=== PATIENT | male | born 1995 | race Caucasian/White ===

== ENCOUNTER 2019-11-26 23:54 | Inpatient (IN) ==
--- NOTE | 2019-11-27 00:50 | Emergency Department Note ---
History of Present Illness General Chief complaint: Mental Health Evaluation Stated complaint: SUICIDAL Time Seen by Provider: 11/27/19 00:08 Source: patient Mode of arrival: other (police) Limitations: no limitations History of Present Illness Provider complaint: hallucinations and Si Onset (ago): year(s) Current Pain Intensity: 0 Exacerbated By: + none Associated symptoms: + denies other symptoms Treatments prior to arrival: none This is a 24-year-old male who presents due to concern for suicidal ideation with law enforcement. Patient states he called police himself due to his concern for worsening SI. Patient does admit to a prior suicide attempt via hanging. Patient states he has a long history of hallucinations. He states these are typically auditory and that the voices tell him to hurt himself as well as other people. Patient states he does regularly use marijuana although denies any other recreational drugs. Patient states several years ago he used to use IV heroin. He states this is also how he acquired hepatitis C from sharing needles. Patient states he did consume some alcohol earlier tonight. Patient denies any other recent illness or injury. Patient states he was previously started on Haldol and Celexa to help with his symptoms, however he stopped taking these several weeks ago because he did not think he needed them. He admits that in the interim the voices he is hearing have gotten worse. Home Medications Home Medications Medication Instructions Recorded Confirmed Type citalopram [Celexa] mg PO DAILY 11/27/19 History haloperidol mg PO DAILY 11/27/19 History Allergies Allergy/AdvReac Type Severity Reaction Status Date / Time lorazepam [From Ativan] Allergy Difficulty Verified 11/27/19 00:22 Breathing Past Med/Surg History Medical History (Updated 11/27/19 @ 02:59 by Kellie Braun DO) Hallucinations (Acute) Hepatitis C Marijuana use (Acute) Suicidal ideation (Acute) Social History (Updated 11/27/19 @ 00:49 by Kellie Braun DO) Current Living Situation: Family current occupational status: employed Feels Safe at Home: Yes Smoking Status: Current every day smoker Tobacco Type: cigarettes ; Hx Alcohol Use: Yes Hx Substance Use: Yes Review of Systems See HPI for pertinent positives & negatives. and A total of 10 systems reviewed and were otherwise negative Physical Exam Vital Signs Vital Signs - 24 hr 11/27/19 00:02 11/27/19 01:43 Temperature 36.6 C Temperature Source Oral Pulse Rate 113 H Pulse Rate [Finger] 89 Respiratory Rate 24 20 Respiratory Effort / Characteristics Non-Labored Spontaneous Respiratory Depth Normal Blood Pressure 147/89 H Blood Pressure [Right Arm] 151/84 H Blood Pressure Mean 108 Blood Pressure Mean [Right Arm] 106 Pulse Oximetry 98 95 Oxygen Delivery Method Room Air Room Air Sepsis Recent Fever Within 48 Hours No Sepsis New/Unexplained Change in Mental Status No Sepsis Action Taken by Nursing No Action Required GENERAL: alert, well appearing, well nourished, no distress, non-toxic EYE EXAM: normal conjunctiva, PERRL and EOM's grossly intact OROPHARYNX: no exudate, no erythema, lips, buccal mucosa, and tongue normal and mucous membranes are moist NECK: supple, no nuchal rigidity, no adenopathy, non-tender LUNGS: Clear to auscultation. Normal chest wall mechanics, no w/r/r HEART: no murmurs, S1 normal and S2 normal ABDOMEN: abdomen soft, non-tender, normo-active bowel sounds, no masses, no rebound or guarding. BACK: Back is symmetrical on inspection and there is no deformity, no midline tenderness, no CVA tenderness. SKIN: no rashes and no bruising UPPER EXTREMITIES: upper extremities are grossly normal. FROM, nml pulses b/l. LOWER EXTREMITIES: No pitting edema. FROM, nml pulses b/l. NEURO EXAM: Normal sensorium, cranial nerves II-XII grossly intact, normal speech, no gross weakness of arms, no gross weakness of legs.Gross sensation intact. Course Course 0255: Patient has been seen and evaluated by Gucci, psychiatric nurse case manager. He will refer upstairs to 3 S. 0400: 201 signed. Medical Decision Making Differential Diagnosis Differential diagnoses considered include mood disorder, infection, hypoglycemia, electrolyte abnormalities, cardiac sources, intracerebral event, toxicologic, neurologic, as well as others. Medical Records Attestation: I reviewed the patient's medical records. Home Medications Current Medication List: was personally reviewed by me Laboratory Data Attestation: I reviewed the patient's lab results. Result diagrams: 11/27/19 01:10 11/27/19 01:10 Lab Results 11/27/19 11/27/19 11/27/19 Range/Units 00:12 00:12 01:10 WBC 9.39 (4.8-10.8) K/uL RBC 5.31 (4.7-6.1) M/uL Hgb 17.1 (14.0-18.0) g/dL Hct 48.7 (42-52) % MCV 91.7 (80-100) fL MCH 32.2 (25-34) pg MCHC 35.1 (32-36) g/dL RDW Std Deviation 41.7 (36.4-46.3) fL RDW Coeff of Kyra 12.5 (11.5-14.5) % Plt Count 204 (130-400) K/uL MPV 10.5 H (7.4-10.4) fL Immature Gran % (Auto) 1.9 % Neut % (Auto) 44.4 % Lymph % (Auto) 39.6 % [place] % (Auto) 10.5 % Eos % (Auto) 2.7 % Baso % (Auto) 0.9 % Immature Gran # (Auto) 0.18 H (0.00-0.02) K/uL Neut # (Auto) 4.17 (1.4-6.5) K/uL Lymph # (Auto) 3.72 H (1.2-3.4) K/uL [place] # (Auto) 0.99 H (0.11-0.59) K/uL Eos # (Auto) 0.25 (0-0.5) K/uL Baso # (Auto) 0.08 (0-0.2) K/uL Sodium (136-145) mmol/L Potassium (3.5-5.1) mmol/L Chloride (98-107) mmol/L Carbon Dioxide (21-32) mmol/L Anion Gap (3-11) BUN (7-18) mg/dl Creatinine (0.6-1.4) mg/dl Est Cr Clr Drug Dosing ml/min Est GFR ( Amer) Est GFR (Non-Af Amer) BUN/Creatinine Ratio (10-20) Glucose (70-99) mg/dl Calcium (8.5-10.1) mg/dl Total Bilirubin (0.2-1) mg/dl AST (15-37) U/L ALT (12-78) U/L Alkaline Phosphatase (45-117) U/L Total Protein (6.4-8.2) gm/dl Albumin (3.4-5.0) gm/dl Globulin (2.5-4.0) gm/dl Albumin/Globulin Ratio (0.9-2) TSH (0.300-4.500) uIu/ml Specimen Hemolysis Urine Color Yellow Urine Appearance Clear (Clear) Urine pH 5.0 (4.5-7.5) Ur Specific [place] 1.033 H (1.000-1.030) Urine Protein Negative (Negative) Urine Glucose (UA) Negative (Negative) Urine Ketones Trace H (Negative) Urine Blood Negative (Negative) Urine Nitrite Negative (Negative) Urine Bilirubin Negative (Negative) Urine Urobilinogen Negative (Negative) Ur Leukocyte Esterase Negative (Negative) Salicylates (2.8-20) mg/dl Urine Opiates Screen Neg (Neg) Ur Methadone, Qual Neg (Neg) Acetaminophen (10-30) ug/ml Urine Barbiturates Neg (Neg) Ur Phencyclidine (PCP) Neg (Neg) U Amphetamin/Meth Scrn Neg (Neg) MDMA (Ecstasy) Screen Neg (Neg) U Benzodiazepines Scrn Neg (Neg) Ur Cocaine Metabolite Neg (Neg) U Marijuana (THC) Screen Pos H (Neg) Ethyl Alcohol mg/dL (0-3) mg/dl 11/27/19 11/27/19 11/27/19 Range/Units 01:10 01:10 01:10 WBC (4.8-10.8) K/uL RBC (4.7-6.1) M/uL Hgb (14.0-18.0) g/dL Hct (42-52) % MCV (80-100) fL MCH (25-34) pg MCHC (32-36) g/dL RDW Std Deviation (36.4-46.3) fL RDW Coeff of Kyra (11.5-14.5) % Plt Count (130-400) K/uL MPV (7.4-10.4) fL Immature Gran % (Auto) % Neut % (Auto) % Lymph % (Auto) % [place] % (Auto) % Eos % (Auto) % Baso % (Auto) % Immature Gran # (Auto) (0.00-0.02) K/uL Neut # (Auto) (1.4-6.5) K/uL Lymph # (Auto) (1.2-3.4) K/uL [place] # (Auto) (0.11-0.59) K/uL Eos # (Auto) (0-0.5) K/uL Baso # (Auto) (0-0.2) K/uL Sodium 141 (136-145) mmol/L Potassium 3.9 (3.5-5.1) mmol/L Chloride 111 H (98-107) mmol/L Carbon Dioxide 22 (21-32) mmol/L Anion Gap 8.0 (3-11) BUN 18 (7-18) mg/dl Creatinine 0.95 (0.6-1.4) mg/dl Est Cr Clr Drug Dosing 162.4 ml/min Est GFR ( Amer) 130.2 Est GFR (Non-Af Amer) 112.4 BUN/Creatinine Ratio 19.0 (10-20) Glucose 97 (70-99) mg/dl Calcium 8.9 (8.5-10.1) mg/dl Total Bilirubin 0.3 (0.2-1) mg/dl AST 86 H (15-37) U/L ALT 164 H (12-78) U/L Alkaline Phosphatase 111 (45-117) U/L Total Protein 7.5 (6.4-8.2) gm/dl Albumin 3.9 (3.4-5.0) gm/dl Globulin 3.6 (2.5-4.0) gm/dl Albumin/Globulin Ratio 1.1 (0.9-2) TSH 2.260 (0.300-4.500) uIu/ml Specimen Hemolysis Urine Color Urine Appearance (Clear) Urine pH (4.5-7.5) Ur Specific [place] (1.000-1.030) Urine Protein (Negative) Urine Glucose (UA) (Negative) Urine Ketones (Negative) Urine Blood (Negative) Urine Nitrite (Negative) Urine Bilirubin (Negative) Urine Urobilinogen (Negative) Ur Leukocyte Esterase (Negative) Salicylates 1.8 L (2.8-20) mg/dl Urine Opiates Screen (Neg) Ur Methadone, Qual (Neg) Acetaminophen < 2 L (10-30) ug/ml Urine Barbiturates (Neg) Ur Phencyclidine (PCP) (Neg) U Amphetamin/Meth Scrn (Neg) MDMA (Ecstasy) Screen (Neg) U Benzodiazepines Scrn (Neg) Ur Cocaine Metabolite (Neg) U Marijuana (THC) Screen (Neg) Ethyl Alcohol mg/dL 36.0 H (0-3) mg/dl Blood Pressure Blood Pressure Findings: Elevated blood pressure Blood Pressure Disposition: Referred to patients primary care provider MIRIAM Narrative Patient here, cooperative throughout. Due to concern for hallucinations and thoughts of wanting to hurt himself, patient seen and evaluated by psychiatric nurse case manager and was referred to [address]. Patient signed voluntary admission form and will be moved upstairs. Patient's other labs here are reassuring. He had no other concerns or other injury or illness. I do not suspect other toxicologic etiology or occult overdose. Impression & Plan Hallucinations, Marijuana use, Suicidal ideation Discharge Plan Visit Data Chief Complaint: Mental Health Evaluation Stated Complaint: SUICIDAL ED Provider: Kellie Braun Discharge Problem: Hallucinations, Marijuana use, Suicidal ideation Patient Disposition: Admitted As Inpatient Discharge Instructions Interventions: ED Discharge Assessment Last Done: 11/27/19 04:21
[2019-11-27 01:15] LABS: Appearance Urine Clear (Clear); Bilirubin Urine Negative (Negative); Blood Urine Negative (Negative); Color Urine Yellow; Glucose Urine UA Negative (Negative); Ketones Urine Trace (Negative); Leukocyte Esterase Urine Negative (Negative); Nitrite Urine Negative (Negative); Protein Urine Negative (Negative); Specific Gravity Urine 1.033 (1.000-1.030); Urobilinogen Urine Negative (Negative)
[2019-11-27 01:26] LABS: Basophils # (auto) 0.08 K/uL (0-0.2); Basophils % (auto) 0.9 %; Eosinophils # (auto) 0.25 K/uL (0-0.5); Eosinophils % (auto) 2.7 %; Hematocrit (blood only) 48.7 % (42-52); Hemoglobin 17.1 g/dL (14.0-18.0); Immature Granulocytes # (auto) 0.18 K/uL (0.00-0.02); Immature Granulocytes % (auto) 1.9 %; Lymphocytes # (auto) 3.72 K/uL (1.2-3.4); Lymphocytes % (auto) 39.6 %; Mean Corpuscular Hemoglobin 32.2 pg (25-34); Mean Corpuscular Hgb Conc 35.1 g/dL (32-36); Mean Corpuscular Volume 91.7 fL (80-100); Mean Platelet Volume 10.5 fL (7.4-10.4); Monocytes # (auto) 0.99 K/uL (0.11-0.59); Monocytes % (auto) 10.5 %; Neutrophils # (auto) 4.17 K/uL (1.4-6.5); Neutrophils % (auto) 44.4 %; Platelet Count 204 K/uL (130-400); RDW Coefficient of Variation 12.5 % (11.5-14.5); RDW Standard Deviation 41.7 fL (36.4-46.3); Red Blood Count 5.31 M/uL (4.7-6.1); White Blood Count 9.39 K/uL (4.8-10.8)
[2019-11-27 01:32] LABS: Amphetamines+Metham, Urine Neg (Neg); Barbiturates, Urine Neg (Neg); Benzodiazepine, Urine Neg (Neg); Cocaine, Urine Neg (Neg); MDMA (Ecstacy), Urine Neg (Neg); Methadone, Urine Neg (Neg); Opiate, Urine Neg (Neg); Phencyclidine, Urine Neg (Neg)
[2019-11-27 02:23] LABS: Acetaminophen < 2 ug/ml (10-30); Albumin Globulin Ratio 1.1 (0.9-2); Albumin Level 3.9 gm/dl (3.4-5.0); Bilirubin,Total 0.3 mg/dl (0.2-1); Calcium 8.9 mg/dl (8.5-10.1); Creatinine Clr Calc Pharmacy 162.4 ml/min; Est GFR (African American) 130.2; Est GFR (Non-African American) 112.4; Globulin 3.6 gm/dl (2.5-4.0); Potassium 3.9 mmol/L (3.5-5.1); Salicylate 1.8 mg/dl (2.8-20); Thyroid Stimulating Hormone 2.26 uIu/ml (0.300-4.500); Total Protein 7.5 gm/dl (6.4-8.2)
[2019-11-27] MEDS ORDERED: BISMUTH SUBSALICYLATE PER ML OMNICELL CHARGE PO PRN (04:37)
[2019-11-27] MEDS ORDERED: ALUMINUM/MAGNESIUM SUSP 30 ML UDC PO PRN (04:37)
[2019-11-27] MEDS ORDERED: SODIUM CHLORIDE 0.65% NA SOLN 45 ML (OCEAN) PRN (04:37)
[2019-11-27] MEDS ORDERED: MAGNESIUM HYDROXIDE SUSP 30 ML UDC PO PRN (04:37)
[2019-11-27] MEDS ORDERED: haloperidoL 5 MG TAB PO PRN (05:08)
--- NOTE | 2019-11-27 08:34 | History & Physical ---
Date of Service November 27, 2019 Impression / Recommendations Impression 24-year-old single male with an unclear past psychiatric history, significant substance abuse history, multiple previous inpatient hospitalizations per his report but no outpatient follow-up and chronic poor adherence to treatment, who presented to the ER after he called police reporting suicidality. Although he signed in voluntarily, he has been completely uncooperative with treatment since arrival, refusing to complete admission assessments, sign requested releases, participate in groups or therapy, resume medications, or accept referrals for outpatient treatment. He reports a history of alcohol withdrawal, and is tachycardic and hypertensive, so we will monitor via AWSS. Although he is refusing to participate in treatment he continues to report suicidality and is unwilling to participate in developing a safe discharge plan, and he is unlikely to benefit from treatment given his current behavior. I suspect antisocial PD and substance abuse are primary diagnoses, and that there is a precipitating stressor that he is not disclosing. He has not been forthcoming with information and has given conflicting reports, and will not allow us to speak with anyone for collateral information. (1) Mood disorder: 11/26 -differential includes depression, bipolar disorder, substance- induced mood disorder, personality disorder, and malingering. -Although patient indicates he was doing well on haloperidol and citalopram, he is refusing to resume these medications. -Request release for most recent episode of treatment (being him to the hospital couple of months ago), which he is refusing to sign. -Reviewed recommendations for collateral information from his brother (or any other support he can identify), but participation in discharge planning, which he is also refusing. -We will continue to encourage patient to come out of his room, attend groups and therapy, and participate in treatment, but if he refuses, we will need to consider administrative discharge. (2) Hallucinations: 11/26 -unclear if true hallucinations, substance-induced, or malingering. -Patient refusing scheduled medication, but have ordered haloperidol 5 mg every 4 hours PRN psychosis. -Encourage patient to be actively participating in treatment and engaging in reality testing and healthy coping skills. (3) Cannabis abuse: 11/26 -hallucinogen use likely contributing to presenting symptoms. Patient unwilling to discuss substance abuse treatment recommendations. (4) Alcohol abuse: 11/26 -patient reports drinking alcohol most days, large amounts, refuses to quantify further. Reports history of alcohol withdrawal and rehab for alcoholism. Start AWSS protocol, will utilize chlordiazepoxide if needed for symptoms, and will avoid lorazepam as he has not listed as an allergy with "difficulty breathing." However would also like to limit hepatically metabolized medications given his hepatitis C and elevated LFTs, but will need to balance the need to treat alcohol withdrawal with attempts to minimize the impact to his other health conditions. Could also consider clonidine for blood pressure control. Patient is refusing substance abuse treatment, but will initiate recovery protocol. Return to rehab or IOP is warranted, but patient unwilling to discuss. (5) Heroin abuse: 11/26 -patient reports being clean for 3 years from heroin. Treatment recommendations as above. (6) IVDU (intravenous drug user): (7) Hepatitis C: Patient denies having a PCP. Recommend referral for initiation of outpatient care, which he is refusing. (8) Antisocial behavior: Demonstrates antisocial personality traits including repeatedly performing acts that are grounds for arrest, deceitfulness, impulsivity, and irritability. Risk Factors Assessment Male: Yes : Yes Do You Have Access To A Gun?: No Health Problems: Yes Mental Health Diagnoses: Yes Substance Use Disorders: Yes Previous Attempt: Yes Family History of Suicide: No Previous Psychiatric Hospitalization: Yes Hopelessness: Yes Smoker: Yes Protective Factors Assessment : No Responsible for Young Children: No Employed: Yes ([employer]) Stable Relationships: No Supportive Family: No Good Rapport with Provider: No Psychiatric History Identifying Data TIMMY THOMASON is a 24-year-old M who currently lives in [place] (either alone or with brother, discrepant reports), and was admitted on 11/27/19 04:15 on a 201 voluntary commitment for suicidality. Chief Complaint "I hate life". History of Present Illness Patient presented to the ER via police reporting suicidal ideation. He stated that he called the police himself, was experiencing auditory hallucinations telling him to hurt himself and other people, and reported a suicide attempt by hanging about a month ago. He reported being hospitalized at many different psychiatric facilities across the [facility], most recently in [facility] a couple of months ago, at which time he was discharged on haloperidol and citalopram, but stopped taking them several weeks ago because he did not think he needed them. The auditory hallucinations then got worse, and he did not feel safe outside of the hospital. He reported regular marijuana and occasional alcohol use, and UDS was positive for THC. LFTs were elevated and he reported a history of hepatitis C from IV drug use, but stated he had not used heroin in several years. Admission labs were also notable for UA with trace ketones and elevated specific gravity, AST 86 and ALT 164, normal TSH, and alcohol level of 36. He initially reported that he was in [place] visiting his brother, then stated that he lived here and had recently started a job at [employer]. He said he was from [place], but his insurance company stated his home address was listed as [place]. His insurance company also indicated that he was at rehab at [facility] in [place] in 06/2019. He refused to sign a release for his brother or any other friends or family for collateral information. He signed in voluntarily for treatment, but after arriving on the unit, was poorly cooperative with all admission assessments. On my assessment today, he was seen in his room, where he is lying in bed with his pillow and blankets piled on top of his head, and was resistant to engaging in the interview. He states he does not like it here because "everyone's too happy," and regrets coming to the hospital. He often answers "I don't know," or mumbles incoherently in response to questions. He refused to complete the social work assessment, and is refusing all groups. He states that mood is been worsening for "a couple of weeks," and when asked if he would like to return to the medications he was on prior as it sounds as if they were helping, he refuses. He says he was started on citalopram and haloperidol when hospitalized in [place] a few months ago, but had no outpatient follow-up after discharge. He reports being hospitalized about 20 times, but never following up as an outpatient, and cannot explain why. He denies ever having an extended period of medication compliance. He says he moved to [place] area a couple of weeks ago because his older brother lives here, but says he is living alone and his brother is not supportive. He says he has no contact with any of his other family members because "they pissed me off, which they all ." He denies thoughts to harm any one specific person, but reports ongoing suicidal thoughts. He reports drinking "a lot," most days of the week, and reports a history of alcohol withdrawal and inpatient rehab in the past, but will not give further details. When advised that we would need to start an alcohol withdrawal protocol, he states "I don't want it." Reviewed the treatment offered here, including the option of medications, referring him for outpatient treatment, groups and therapy, and a family meeting; he says he does not want any of these things. When asked if he would like to leave, he says yes. Explained process for submitting a 72-hour notice. Inquired as to his plan when he leaves, and he stated "no idea." Advised that we cannot discharge him until he can work with us for a safe discharge plan. Social work then attempted to meet with him, and he refused to answer questions or complete the social work assessment. Past Psychiatric History Previous Psych History: Patient states he does not know what he was diagnosed within the past, but has had many hospitalizations. He denies ever following up with outpatient treatment. Current Psychiatric Diagnosis: Unknown Outpatient Services: None currently Previous Psych Admissions: Patient reports many hospitalizations, approximately 20, [place]," most recent hospitalization in [place], [place]. Do You Have Access To A Gun?: No History of Previous Suicide Attempt: Yes Describe Attempts in the Past: Attempted hanging approximately 1 month ago per his report Past Medication Trials: Information limited due to patient's poor cooperation with assessment; reports most recently being on Haloperidol citalopram Allergies Allergy/AdvReac Type Severity Reaction Status Date / Time lorazepam [From Ativan] Allergy Difficulty Verified 11/27/19 00:22 Breathing Family History Family History of: Other Mood Disorders Family Mental Health History Comment: "All the family are schizophrenia" Alcohol History Hx of Alcohol Use Over the Past 12 Months: Yes In the ER patient reported drinking "occasionally," but now states he drinks most days, "a lot," refuses to quantify amount. Reports history of alcohol withdrawal and inpatient rehab for alcoholism. Smoking Use Have You Smoked or Used Tobacco Products in the Last 30 Days: Yes tobacco type: cigarettes Smoking Status: Current every day smoker Smoking packs per day: 1 Substance History Hx of Prescription Med Misuse Over the Past 12 Months: No Hx of Over the Counter Med Misuse Over the Past 12 Months: No Hx of Inhalent Misuse Over the Past 12 Months: No Hx of Organic Substance Use Over the Past 12 Months: Yes ("Daily marijuana") Hx of Illegal Substances/Street Drug Use Over Past 12 Months: No Problems as a Result of Past Substance Use: Arrested and Sustained Bodily Harm (hepatitis C from IVDU) History of IV drug use, contracted hepatitis C. [facility] last use of heroin was approximately 3 years ago, but insurance indicates he was in rehab 5 months ago. Arrested for drug paraphernalia and controlled substance possession. History of alcohol withdrawal and inpatient rehab. Personal History Living Arrangements: Home Living Arrangements Comments: in [place] - gave discrepant reports, stating he was staying with brother, then saying he lived alone. Address is a PO box. Also reported living in [facility] Highest Grade Completed Comment: Unknown as patient refuses to answer. Employment Status: Strip [employer] Employed (states he just started a job at [employer] ) Marital Status: Single Number Of Children: Unknown as patient refuses to answer. Beliefs That Will Affect Care: None Legal Problems Comment: Patient denied in the ER, but per public record multiple arrests in [facility]: 2018 terroristic threats, 2015 receiving stolen property, disorderly conduct, fighting, criminal mischief, harassment, posses bernardino of controlled substances, and drug paraphernalia Hx Legal Problems: Yes Psychological Trauma History Comment: Unknown as patient refuses to answer. Patient History Medical History (Updated 11/27/19 @ 11:10 by Radha Chaney MD) Alcohol abuse Antisocial behavior Cannabis abuse Hallucinations (Acute) Hepatitis C Heroin abuse IVDU (intravenous drug user) Mood disorder Social History (Updated 11/27/19 @ 00:49 by Kellie Braun DO) Preferred Language: Belizean Communication Ability: Effective Salesperson Women'S Dresses Required: No Beliefs That Will Affect Care: None Current Living Situation: Family current occupational status: employed Feels Safe at Home: Yes Smoking Status: Current every day smoker Tobacco Type: cigarettes ; Hx Alcohol Use: Yes Hx Substance Use: Yes Review of Systems Review of Systems: Other (Patient refuses to answer.) Physical Exam Psychiatric: Orientation: alert; + uncooperative Overweight white male lying in bed, shirtless, with pillows and blankets piled on top of his head. Poorly cooperative, limited participation in assessment. Malodorous. Eye Contact: + poor eye contact Patient does not make any eye contact. Motor Behavior: no abnormal motor movements Minimal, mumbles at times. Affect: + depressed affect, + irritable affect and + constricted affect "I hate life." Thought Process: goal directed thought process Often answers "I don't know," positive thought content Suicidal Thoughts: + reports suicidal thoughts Homicidal Thoughts: denies homicidal thoughts Reports nonspecific thoughts to harm others, denies specific person he wants to harm her plan/intent Hallucinations: + auditory hallucinations Refuses to discuss or provide further information Cognition: attention grossly intact and language grossly intact Insight: + poor insight Judgement: + poor judgement Vital Signs (Past 24 Hours): Last Vital Signs Temp 36.6 C 11/27/19 06:49 Pulse 98 H 11/27/19 06:51 Resp 18 11/27/19 06:49 BP 147/84 H 11/27/19 06:51 Pulse Ox 99 11/27/19 04:21 Exam Statement: A physical exam was performed in the ER prior to admission to the unit by Dr. Kellie Braun. I accept that physical as correct/medical clearance for the inpatient physical exam. Results & Data ([facility]) Laboratory Results Laboratory Results - last 24 hr 11/27/19 11/27/19 11/27/19 00:12 00:12 00:12 WBC RBC Hgb Hct MCV MCH MCHC RDW Std Deviation RDW Coeff of Kyra Plt Count MPV Immature Gran % (Auto) Neut % (Auto) Lymph % (Auto) [place] % (Auto) Eos % (Auto) Baso % (Auto) Immature Gran # (Auto) Neut # (Auto) Lymph # (Auto) [place] # (Auto) Eos # (Auto) Baso # (Auto) Sodium Potassium Chloride Carbon Dioxide Anion Gap BUN Creatinine Est Cr Clr Drug Dosing Est GFR ( Amer) Est GFR (Non-Af Amer) BUN/Creatinine Ratio Glucose Calcium Total Bilirubin AST ALT Alkaline Phosphatase Total Protein Albumin Globulin Albumin/Globulin Ratio TSH Specimen Hemolysis Urine Color Yellow Urine Appearance Clear Urine pH 5.0 Ur Specific [place] 1.033 H Urine Protein Negative Urine Glucose (UA) Negative Urine Ketones Trace H Urine Blood Negative Urine Nitrite Negative Urine Bilirubin Negative Urine Urobilinogen Negative Ur Leukocyte Esterase Negative Salicylates Urine Opiates Screen Neg Ur Methadone, Qual Neg Acetaminophen Urine Barbiturates Neg Ur Phencyclidine (PCP) Neg U Amphetamin/Meth Scrn Neg MDMA (Ecstasy) Screen Neg U Benzodiazepines Scrn Neg Ur Cocaine Metabolite Neg U Marijuana (THC) Screen Pos H U Marijuana THC Carboxy Pending Drug Screen Comment Pending Ethyl Alcohol mg/dL 11/27/19 11/27/19 11/27/19 01:10 01:10 01:10 WBC 9.39 RBC 5.31 Hgb 17.1 Hct 48.7 MCV 91.7 MCH 32.2 MCHC 35.1 RDW Std Deviation 41.7 RDW Coeff of Kyra 12.5 Plt Count 204 MPV 10.5 H Immature Gran % (Auto) 1.9 Neut % (Auto) 44.4 Lymph % (Auto) 39.6 [place] % (Auto) 10.5 Eos % (Auto) 2.7 Baso % (Auto) 0.9 Immature Gran # (Auto) 0.18 H Neut # (Auto) 4.17 Lymph # (Auto) 3.72 H [place] # (Auto) 0.99 H Eos # (Auto) 0.25 Baso # (Auto) 0.08 Sodium 141 Potassium 3.9 Chloride 111 H Carbon Dioxide 22 Anion Gap 8.0 BUN 18 Creatinine 0.95 Est Cr Clr Drug Dosing 162.4 Est GFR ( Amer) 130.2 Est GFR (Non-Af Amer) 112.4 BUN/Creatinine Ratio 19.0 Glucose 97 Calcium 8.9 Total Bilirubin 0.3 AST 86 H ALT 164 H Alkaline Phosphatase 111 Total Protein 7.5 Albumin 3.9 Globulin 3.6 Albumin/Globulin Ratio 1.1 TSH 2.260 Specimen Hemolysis Urine Color Urine Appearance Urine pH Ur Specific [place] Urine Protein Urine Glucose (UA) Urine Ketones Urine Blood Urine Nitrite Urine Bilirubin Urine Urobilinogen Ur Leukocyte Esterase Salicylates 1.8 L Urine Opiates Screen Ur Methadone, Qual Acetaminophen < 2 L Urine Barbiturates Ur Phencyclidine (PCP) U Amphetamin/Meth Scrn MDMA (Ecstasy) Screen U Benzodiazepines Scrn Ur Cocaine Metabolite U Marijuana (THC) Screen U Marijuana THC Carboxy Drug Screen Comment Ethyl Alcohol mg/dL 11/27/19 01:10 WBC RBC Hgb Hct MCV MCH MCHC RDW Std Deviation RDW Coeff of Kyra Plt Count MPV Immature Gran % (Auto) Neut % (Auto) Lymph % (Auto) [place] % (Auto) Eos % (Auto) Baso % (Auto) Immature Gran # (Auto) Neut # (Auto) Lymph # (Auto) [place] # (Auto) Eos # (Auto) Baso # (Auto) Sodium Potassium Chloride Carbon Dioxide Anion Gap BUN Creatinine Est Cr Clr Drug Dosing Est GFR ( Amer) Est GFR (Non-Af Amer) BUN/Creatinine Ratio Glucose Calcium Total Bilirubin AST ALT Alkaline Phosphatase Total Protein Albumin Globulin Albumin/Globulin Ratio TSH Specimen Hemolysis Urine Color Urine Appearance Urine pH Ur Specific [place] Urine Protein Urine Glucose (UA) Urine Ketones Urine Blood Urine Nitrite Urine Bilirubin Urine Urobilinogen Ur Leukocyte Esterase Salicylates Urine Opiates Screen Ur Methadone, Qual Acetaminophen Urine Barbiturates Ur Phencyclidine (PCP) U Amphetamin/Meth Scrn MDMA (Ecstasy) Screen U Benzodiazepines Scrn Ur Cocaine Metabolite U Marijuana (THC) Screen U Marijuana THC Carboxy Drug Screen Comment Ethyl Alcohol mg/dL 36.0 H Current Inpatient Medications Current Inpatient Medications: Current Inpatient Medications Acetaminophen (Tylenol) 650 mg PO Q4H PRN PRN Reason: Headache or Minor Fever Stop: 12/27/19 04:36 Al Hydrox/Mg Hydrox/Simethicone (Maalox) 30 ml PO Q4H PRN PRN Reason: GI Upset Stop: 12/27/19 04:36 Bismuth Subsalicylate (Kaopectate) 15 ml PO PRN PRN PRN Reason: Loose Stool Stop: 12/27/19 04:36 Haloperidol (Haldol) 5 mg PO Q4 PRN PRN Reason: psychosis Stop: 12/27/19 07:59 Hydroxyzine HCl (Vistaril) 50 mg PO HSZ PRN PRN Reason: Insomnia Stop: 12/27/19 04:36 Hydroxyzine HCl (Vistaril) 25 mg PO Q4H PRN PRN Reason: Anxiety Stop: 12/27/19 04:36 Magnesium Hydroxide (Milk Of Magnesia) 30 ml PO DAILY PRN PRN Reason: Constipation Stop: 12/27/19 04:36 Sodium Chloride ([place] Nasal) 1 - 2 sprays NA PRN PRN PRN Reason: Nasal Dryness/Congestion Stop: 12/27/19 04:36
[2019-11-27] MEDS: ACETAMINOPHEN 325 MG TAB PO PRN ×2 (12:45→17:20)
[2019-11-27] MEDS ORDERED: NICOTINE POLACRILEX 2 MG GUM MT PRN (19:25)
--- NOTE | 2019-11-28 09:15 | Psychiatric Progress Note ---
Date of Service November 28, 2019 Impression / Recommendations Impression 24-year-old single male with an unclear past psychiatric history, significant substance abuse history, multiple previous inpatient hospitalizations per his report but no outpatient follow-up and chronic poor adherence to treatment, who presented to the ER after he called police reporting suicidality. On admission, patient was rather uncooperative with treatment, refusing to engage with staff, and using threatening language. Later on the day of admission, he did agree to sign an NAZANIN for [facility], as he indicated he was accepted to their facility and was coordinating admission prior to getting intoxicated and later presenting to the ED. Pt attended morning groups of his own accord, and has been interacting appropriately with peers. He did cooperate with review of a behavioral plan outlining expected conduct of patients during voluntary psychiatric treatment. He did verbalize understanding of this plan and signed without incident. Pt maintains that his discharge plan is for transfer to an inpatient D&A rehab facility. He is even requesting long-term treatment options in order to assist with maintaining sobriety. Pt will be encouraged to continue to participate in group programming and to engage with our social work team in order to coordinate rehab referrals. He maintains that his suicidality was in the context of acute alcohol/"spice" intoxication and that he is no longer experiencing auditory/command hallucinations and is no longer suicidal. He is understanding of our need to ensure psychiatric stability and safety prior to anticipated referral/transfer to rehab. Pt remains at high risk of relapse and therefore recurrence of SI/depression increasing risk for suicide if he is discharged home without adequate support. Most appropriate treatment plan at this time is for direct transfer to an inpatient D&A rehab for substance abuse treatment and interventions. In the interim, inpatient psychiatric treatment remains the most appropriate and least restrictive setting to ensure his safety at this time. (1) Mood disorder: 11/26 -differential includes depression, bipolar disorder, substance- induced mood disorder, personality disorder, and malingering. -Although patient indicates he was doing well on haloperidol and citalopram, he is refusing to resume these medications. -Request release for most recent episode of treatment (being him to the hospital couple of months ago), which he is refusing to sign. -Reviewed recommendations for collateral information from his brother (or any other support he can identify), but participation in discharge planning, which he is also refusing. -We will continue to encourage patient to come out of his room, attend groups and therapy, and participate in treatment, but if he refuses, we will need to consider administrative discharge. 11/27 - Patient's presentation is most likely consistent with substance-induced mood disorder; although we will continue attempts to gather collateral information to further shape our differential - Pt is much more cooperative this morning, appearing genuinely remorseful for his poor attitude yesterday and has been engaged with peers - Pt admits that use of alcohol and other substances contributes to depressive symptoms and SI - he admits to doing well during a 13-month period of sobriety while off psychotropic medications - Pt is declining at this time to resume scheduled psychotropic medications - will continue to monitor mood over the course of his admission - Pt denies SI and other mood-related concerns this morning - Pt did sign behavioral plan regarding conduct here on the unit (2) Hallucinations: 11/26 -unclear if true hallucinations, substance-induced, or malingering. -Patient refusing scheduled medication, but have ordered haloperidol 5 mg every 4 hours PRN psychosis. -Encourage patient to be actively participating in treatment and engaging in reality testing and healthy coping skills. 11/27 - Pt does verify that hallucinations are not present during periods of sobriety - as evidence by a 13 month period of abstinence from substance in which patient denies encountering any psychotic symptoms - With this information, hallucinations are most likely substance-induced and therefore not likely related to an underlying psychotic/thought disorder - Pt is denying auditory/command hallucinations this morning; has not required prn haloperidol (3) Cannabis abuse: 11/26 -hallucinogen use likely contributing to presenting symptoms. Patient unwilling to discuss substance abuse treatment recommendations. 11/27 - Pt continues to verbalize a willingness for rehab placement, something he confirms he had initiated on an outpatient basis prior to admission - Pt admits to depressive symtpoms and occasional suicidality within the context of alcohol and "spice" use - denies SI presently stating "it was all because I got drunk and did spice, I'm fine now." (4) Alcohol abuse: 11/26 -patient reports drinking alcohol most days, large amounts, refuses to quantify further. Reports history of alcohol withdrawal and rehab for alcoholism. Start AWSS protocol, will utilize chlordiazepoxide if needed for symptoms, and will avoid lorazepam as he has not listed as an allergy with "difficulty breathing." However would also like to limit hepatically metabolized medications given his hepatitis C and elevated LFTs, but will need to balance the need to treat alcohol withdrawal with attempts to minimize the impact to his other health conditions. Could also consider clonidine for blood pressure control. Patient is refusing substance abuse treatment, but will initiate recovery protoc ol. Return to rehab or IOP is warranted, but patient unwilling to discuss. 11/27 - Pt admits to having a problem with alcohol and other substance use - He indicates a desire for referral to inpatient D&A rehab, with consideration at this time to utilize a long-term program to maintain sobriety after discharge - Pt did sign and NAZANIN for [facility], who confirmed that the patient had already completed their intake process prior to psychiatric admission - and they were attempting to coordinate his admission to their facility - Will continue to offer group programming and therapeutic interventions while monitoring for safety concerns - will re-refer to inpatient rehab at patient's request - Pt has not been scoring for prn medications with AWSS monitoring -Brief intervention with use of motivational interviewing was offered and accepted Intervention was greater than 5 min in length. Brief interventions include: 1. Assess Readiness to Quit, 2. Advise: Help Patient to Reduce or Abstain from Alcohol, 3. Agree: Set Specific, Feasible Goals, 4. Assist: Anticipate barriers, Problem-Solving Solutions. Social work to 5. Arrange: Referrals to appropriate treatment. Summary of intervention: The patient is in contemplation stage with regards to transtheoretical model of change. The patient is advised to decrease alcohol consumption due to depressant effects and risk of interactions with prescription medications. The patient was advised of recommendations for abstinence from alcohol and other abusable substances and to attend substance abuse treatment at discharge, and will be provided with recovery materials to continue to education self on how to cope with their condition without drinking. (5) Heroin abuse: 11/26 -patient reports being clean for 3 years from heroin. Treatment recommendations as above. 11/27 - Verbalizing desire for inpatient D&A rehab as above (6) IVDU (intravenous drug user): (7) Hepatitis C: Patient denies having a PCP. Recommend referral for initiation of outpatient care, which he is refusing. (8) Antisocial behavior: Demonstrates antisocial personality traits including repeatedly performing acts that are grounds for arrest, deceitfulness, impulsivity, and irritability. 3/19 - While patient's history remains consistent for antisocial personality traits, he does demonstrate sincere remorse for his poor attitude yesterday and is seemingly genuinely interested in cooperating with treatment in hopes for rehab placement. - No agitated behavior or threatening language toward staff; appropriate and cheerful interactions with peers - Pt did comply with discussing and agreeing to a behavioral plan regarding patient rights and responsibilities during psychiatric treatment Risk Factors Assessment Male: Yes : Yes Do You Have Access To A Gun?: No Health Problems: Yes Mental Health Diagnoses: Yes Substance Use Disorders: Yes Previous Attempt: Yes Family History of Suicide: No Previous Psychiatric Hospitalization: Yes Hopelessness: Yes Smoker: Yes Protective Factors Assessment : No Responsible for Young Children: No Employed: Yes ([employer]) Stable Relationships: No Supportive Family: No Good Rapport with Provider: No Interval History Identifying Information TIMMY THOMASON is a 24-year-old M who currently lives in [place] (either alone or with brother, discrepant reports), and was admitted on 11/27/19 04:15 on a 201 voluntary commitment for suicidality. Chief Complaint "Um, what did you want to talk about? All I wanted to do was get to rehab." Review of Systems Notes Constitutional: denied Cardiovascular: denied Respiratory: denied Gastrointestinal: denied Neurological: denied Psychiatric: denies symptoms other than stated above Total of at least 10 systems reviewed, pertinent positives as above and in HPI. Sleep Information Total Hours of Sleep: 6 Sleep Comments: . Meal Information Percent Meal Consumed - Breakfast: 0 Percent Meal Consumed - Lunch: 100 Percent Meal Consumed - Dinner: 100 Subjective Subjective Patient was seen & assessed and interval progress reviewed with nursing and social work. Staff report the patient continued to be uncooperative throughout the even, but did agree to evening vitals for AWSS monitoring. Pt did report ongoing SI last evening. Decision made during morning report to draw up a behavioral plan for the patient regarding rights and responsibilities of voluntary psychiatric treatment. Pt did attend community meeting of his own accord and has been observed to be bright and interactive with peers this morning. Pt was seen today to assess progress since admission. Charge nurse participated in conversation and subsequent review of behavioral plan. Pt states "I was accepted to rehab, that's all I wanted. What happened?" Question was turned on the patient, to assess the events that led to his hospitalization. Pt states, "I got drunk..." Pt indicates that he had been coordinating admi ssion to [facility] on and outpatient basis but "then I got drunk and started using spice. My mood usually gets pretty depressed and I guess I said some things." Pt does indicate that at this time he is no longer experiencing SI - believing these symptoms occurred in the context of his alcohol/substance use. Pt is able to talk candidly about his substance abuse history, admitting to numerous inpatient psychiatric stays along with several inpatient rehab attempts. Pt states his longest rehab program lasted 21-days, and that he was able to maintain sobriety for 13-months. Pt states he relapsed in -08/2019 and is interested in getting help again. Pt is able to offer some insight regarding his reports of auditory hallucinations. He states, "I get these voices telling me to kill myself, I really think it's the spice." Pt indicates that during his 13-month period of sobriety, he did not experience auditory hallucinations. He also reports that he was not taking any psychiatric m edications at that time. Pt admits to having been prescribed haloperidol and citalopram previously, but "they didn't really work." He is able to recognize "it's the drugs, I need to stop." Pt continues to decline scheduled medications at this time, but did participate appropriately in a conversation regarding possible indications for medication. He states his preference for [facility] was in part due to their dual-diagnosis status. Pt was made aware of prn medications to assist with anxiety/insomnia and even recurrence of hallucinations. He denies additional questions or concerns at this time. This PA-C, in conjunction with charge nurse, was able to discuss candidly patient's poor attitude yesterday - and our limit tolerance for this to continue. Pt was offered encouragement, as it does appear he is presenting a much more positive and cooperative attitude so far this morning. Pt does admit he was not feeling well yesterday, and does offer his apologies for his behavior. He was cooperative with review of behavioral plan, in order for staff to support patient in achieving his treatment and discharge goals. Pt agreed to and signed the plan without incident. He maintains that he is interested in referrals to rehab. This process was reviewed with the patient, with him verbalizing understanding. We was informed of need to ensure psychiatric stability and safety prior to referral/transfer. He is denying SI at this time, believing these thoughts were related to his substance use prior to admission. He denies additional safety concerns presently. Physical Exam Psychiatric Orientation: alert, oriented x 3 and cooperative (polite and pleasant) Apperance: appropriately dressed (casually, wearing a polo shirt and khaki pants ), appropriately groomed and appeared stated age Eye Contact: good eye contact Motor Behavior: steady gait and station and no abnormal motor movements Speech: normal rate/rhythm/volume of speech (polite tone) Affect: euthymic affect (bright, interactive ); no irritable affect and no angry affect Mood: no depressed mood ("I'm fine now") Pt does report depression in the context of substance use prior to admission, denies these mood concerns so far this morning Thought Process: goal directed thought process, clear/coherent thought process and thought association intact Thought Content: reality based without delusions; not paranoid and no hopelessness Suicidal Thoughts: denies suicidal thoughts and denies suicidal intent Homicidal Thoughts: denies homicidal thoughts Hallucinations: no auditory hallucinations (believes command hallucinations were in the context of "spice" use) and no visual hallucinations Cognition: remote memory grossly intact, attention grossly intact and language grossly intact Insight: + fair insight Judgement: + fair judgement Vital Signs (Past 24 Hours) Last Vital Signs Temp 36.4 C L 11/27/19 21:34 Pulse 71 11/27/19 21:34 Resp 16 11/27/19 21:34 BP 115/78 11/27/19 21:34 Pulse Ox 99 11/27/19 04:21 Results & Data ([facility]) Current Inpatient Medications Current Inpatient Medications: Current Inpatient Medications Acetaminophen (Tylenol) 650 mg PO Q4H PRN PRN Reason: Headache or Minor Fever Stop: 12/27/19 04:36 Last Admin: 11/27/19 17:20 Dose: 650 mg Documented by: Al Hydrox/Mg Hydrox/Simethicone (Maalox) 30 ml PO Q4H PRN PRN Reason: GI Upset Stop: 12/27/19 04:36 Bismuth Subsalicylate (Kaopectate) 15 ml PO PRN PRN PRN Reason: Loose Stool Stop: 12/27/19 04:36 Last Admin: 11/27/19 17:40 Dose: 15 ml Documented by: Haloperidol (Haldol) 5 mg PO Q4 PRN PRN Reason: psychosis Stop: 12/27/19 07:59 Hydroxyzine HCl (Vistaril) 50 mg PO HSZ PRN PRN Reason: Insomnia Stop: 12/27/19 04:36 Hydroxyzine HCl (Vistaril) 25 mg PO Q4H PRN PRN Reason: Anxiety Stop: 12/27/19 04:36 Magnesium Hydroxide (Milk Of Magnesia) 30 ml PO DAILY PRN PRN Reason: Constipation Stop: 12/27/19 04:36 Nicotine Polacrilex (Nicorette 2mg) 2 piece MT PRN PRN PRN Reason: nicotine withdrawal Stop: 12/27/19 19:24 Last Admin: 11/27/19 19:31 Dose: 2 piece Documented by: Sodium Chloride (Ballard Nasal) 1 - 2 sprays NA PRN PRN PRN Reason: Nasal Dryness/Congestion Stop: 12/27/19 04:36 Mental Health & Subst Abuse Tx Therapist Name of Therapist: Denies/None Engine Manager Name of Engine Manager: Denies/None Post Discharge Appointments Primary Care Physician Name Of Family Doctor: Denies/None
[2019-11-28] MEDS ORDERED: IBUPROFEN 600 MG TAB PO PRN (10:25)
[2019-11-28] MEDS: ACETAMINOPHEN 325 MG TAB PO PRN (16:59)
--- NOTE | 2019-11-29 11:46 | Discharge Summary ---
Date of Service November 29, 2019 History of Present Illness Patient presented to the ER via police reporting suicidal ideation. He stated that he called the police himself, was experiencing auditory hallucinations telling him to hurt himself and other people, and reported a suicide attempt by hanging about a month ago. He reported being hospitalized at many different psychiatric facilities across the [facility], most recently in [facility] a couple of months ago, at which time he was discharged on haloperidol and citalopram, but stopped taking them several weeks ago because he did not think he needed them. The auditory hallucinations then got worse, and he did not feel safe outside of the hospital. He reported regular marijuana and occasional alcohol use, and UDS was positive for THC. LFTs were elevated and he reported a history of hepatitis C from IV drug use, but stated he had not used heroin in several years. Admission labs were also notable for UA with trace ketones and elevated specific gravity, AST 86 and ALT 164, normal TSH, and alcohol level of 36. He initially reported that he was in [place] visiting his brother, then stated that he lived here and had recently started a job at [employer]. He said he was from [place], but his insurance company stated his home address was listed as [place]. His insurance company also indicated that he was at rehab at [facility] in [place] in 06/2019. He refused to sign a release for his brother or any other friends or family for collateral information. He signed in voluntarily for treatment, but after arriving on the unit, was poorly cooperative with all admission assessments. On my assessment today, he was seen in his room, where he is lying in bed with his pillow and blankets piled on top of his head, and was resistant to engaging in the interview. He states he does not like it here because "everyone's too happy," and regrets coming to the hospital. He often answers "I don't know," or mumbles incoherently in response to questions. He refused to complete the social work assessment, and is refusing all groups. He states that mood is been worsening for "a couple of weeks," and when asked if he would like to return to the medications he was on prior as it sounds as if they were helping, he refuses. He says he was started on citalopram and haloperidol when hospitalized in [place] a few months ago, but had no outpatient follow-up after discharge. He reports being hospitalized about 20 times, but never following up as an outpatient, and cannot explain why. He denies ever having an extended period of medication compliance. He says he moved to [facility] a couple of weeks ago because his older brother lives here, but says he is living alone and his brother is not supportive. He says he has no contact with any of his other family members because "they pissed me off, which they all ." He denies thoughts to harm any one specific person, but reports ongoing suicidal thoughts. He reports drinking "a lot," most days of the week, and reports a history of alcohol withdrawal and inpatient rehab in the past, but will not give further details. When advised that we would need to start an alcohol withdrawal protocol, he states "I don't want it." Reviewed the treatment offered here, including the option of medications, referring him for outpatient treatment, groups and therapy, and a family meeting; he says he does not want any of these things. When asked if he would like to leave, he says yes. Explained process for submitting a 72-hour notice. Inquired as to his plan when he leaves, and he stated "no idea." Advised that we cannot discharge him until he can work with us for a safe discharge plan. Social work then attempted to meet with him, and he refused to answer questions or complete the social work assessment. Physical Exam Psychiatric Orientation: alert, oriented x 3 and cooperative Apperance: appropriately dressed, appropriately groomed and appeared stated age Eye Contact: + poor eye contact Motor Behavior: steady gait and station and no abnormal motor movements Speech: normal rate/rhythm/volume of speech Affect: euthymic affect Observed on the phone laughing frequently, shortly prior to the discharge assessment. "Okay." Thought Process: goal directed thought process Thought Content: reality based without delusions Suicidal Thoughts: denies suicidal thoughts Homicidal Thoughts: denies homicidal thoughts Hallucinations: no auditory hallucinations and no visual hallucinations The patient clarified that he only experiences hallucinations when he is using drugs that are known to cause hallucinations. Also, at admission the patient asserted that he was experiencing hallucinations, but was not observed behaving in a manner that would be consistent with response to internal perceptual stimuli. Cognition: recent memory grossly intact and remote memory grossly intact Estimated Intelligence: average estimated intelligence Insight: + poor insight Judgement: + limited judgement Vital Signs (Past 24 Hours) Last Vital Signs Temp 36.7 C 11/29/19 09:45 Pulse 87 11/29/19 09:45 Resp 16 11/29/19 09:45 BP 159/81 H 11/29/19 09:45 Pulse Ox 99 11/29/19 09:45 Principal Diagnosis Substance use disorder. Psychiatric Data During the course of hospitalization the patient was offered various modalities of psychiatric treatment and education. These included individual, group, and activity therapies. He was often petulant and somewhat disruptive in groups and in individual interventions. For example, during 1 of the admission evaluations the patient pulled something over his head and essentially declined to answer questions. The patient also was sometimes disruptive in groups because, rather than participate in the group, he would engage in parallel activities, or turn his head away when the group sales representative was speaking. He was confronted a number of times, including by his peers, about his rude and immature behaviors, and also, about the fact that he seemed to regularly choose to misrepresent the truth so that no one could be certain if what he was saying was or was not true. Although sometimes fairly bumptious and even insulting, he did respond to firm limit setting, particularly of provided by male staff members. It had initially been thought that he might benefit from an antipsychotic medication given his report that he is experiencing various types of hallucinations as well as depression and thoughts of suicide. However, we saw no objective evidence to support the patient's assertion that he was hallucinating or depressed, and he quickly began denying that he was suicidal. Further, the patient clarified that he only experiences perceptual disturbances when he is using a chemical substance that is known to cause hallucinations. On the day of discharge, the patient reported that he was not feeling depressed, not experiencing any perceptual disturbances, and was not having any thoughts of suicide. However, he resisted discharge by claiming that he had no place to go. When he was reminded that he could go back to the [facility], he said that he "could not go back" because "that place has too much drama!" Understanding from the program is that this is an option, the patient was informed that the choice will be his. Day of Discharge Assessment On the day of discharge, the patient continued to periodically engage in certain bumptious behaviors. For example, earlier in the day he had commented, in a fairly large voice, and in front of his peers, that a certain staff member is "a bitch." During the discharge assessment, he was appropriately dressed and groomed, and was fairly respectful and cooperative. Of note is that the discharge assessment was conducted by a male psychiatrist, and it occurred to the members of the staff that the patient's behavior seems to alter depending on the gender of the person with whom he is interacting. The patient's speech was delivered at a normal rate and volume. His mood is described as "okay" and "not depressed." His affect was euthymic. Shortly before the discharge assessment the patient was overheard laughing out loud a number of times while speaking on the telephone, and his interaction with peers and in activity therapies on the day of discharge was animated and bright. The patient's thought processes demonstrated tight associations. His thought content was found to be devoid of any psychotic features. He reports that he is not experiencing any perceptual disturbances/hallucinations, and has disclosed that the only time he has experienced perceptual disturbances in the past is when he is using chemical substances that are known to precipitate hallucinations. Patient reports at discharge that he is not experiencing any suicidal ideation, and seems largely focused on moving on to residential chemical dependency treatment. At one point, when he was told he was going to be discharged directly without necessar ralf being transferred to a residential chemical dependency program, he made a vague threat by saying, "you better get security up here if you try to discharge [him] without [sending him to a rehab program]." However, when confronted by male staff member the patient backed down from the statement, and indicated that he was just "blowing off steam," and was cooperative with the discharge process. Transition of Care Transition Of Care Record: was reviewed with the patient Advance Directives Advance Directives Information Provided: Yes Advance Directives: No Mental Health Advance Directive: No Advance Directives on File: No Living Will: No Power of Glass Deposition Tender: No Advance Directives Reason:: Declines as Mental Health Visit. Risk Factors Assessment Male. Chronic chemical abuse of chemical substances. Antisocial traits. Limited community supports. Male: Yes : Yes Do You Have Access To A Gun?: No Health Problems: Yes Mental Health Diagnoses: Yes Substance Use Disorders: Yes Previous Attempt: Yes Previous Attempt; Highly Lethal: No Previous Attempt; Planned: No Previous Attempt; Didn't Tell Anyone: No Family History of Suicide: No Previous Psychiatric Hospitalization: Yes Hopelessness: Yes Smoker: Yes Protective Factors Assessment Rastafarian Beliefs: No : No Responsible for Young Children: No Employed: Yes ([employer]) Stable Relationships: No Supportive Family: No Good Rapport with Provider: No Absence of Any Risk Factors Above: No Tobacco Cessation at Discharge Tobacco Cessation Medication Prescribed at Discharge: Offered & Pt Refused (Patient reports that he was not experiencing any nicotine withdrawal symptoms and asserts, recently, that he might reintroduce nicotine dependence where he to begin using nicotine replacement products.) Total Time Total Time Spent: Greater Than 30 Minutes Total Time Includes: Examination of the patient, Discharge Planning, Medication Reconciliation and Communication with other providers Discharge Data Lab Results 11/27/19 11/27/19 11/27/19 00:12 00:12 01:10 WBC 9.39 RBC 5.31 Hgb 17.1 Hct 48.7 MCV 91.7 MCH 32.2 MCHC 35.1 RDW Std Deviation 41.7 RDW Coeff of Kyra 12.5 Plt Count 204 MPV 10.5 H Immature Gran % (Auto) 1.9 Neut % (Auto) 44.4 Lymph % (Auto) 39.6 [place] % (Auto) 10.5 Eos % (Auto) 2.7 Baso % (Auto) 0.9 Immature Gran # (Auto) 0.18 H Neut # (Auto) 4.17 Lymph # (Auto) 3.72 H [place] # (Auto) 0.99 H Eos # (Auto) 0.25 Baso # (Auto) 0.08 Sodium Potassium Chloride Carbon Dioxide Anion Gap BUN Creatinine Est Cr Clr Drug Dosing Est GFR ( Amer) Est GFR (Non-Af Amer) BUN/Creatinine Ratio Glucose Calcium Total Bilirubin AST ALT Alkaline Phosphatase Total Protein Albumin Globulin Albumin/Globulin Ratio TSH Specimen Hemolysis Urine Color Yellow Urine Appearance Clear Urine pH 5.0 Ur Specific [place] 1.033 H Urine Protein Negative Urine Glucose (UA) Negative Urine Ketones Trace H Urine Blood Negative Urine Nitrite Negative Urine Bilirubin Negative Urine Urobilinogen Negative Ur Leukocyte Esterase Negative Salicylates Urine Opiates Screen Neg Ur Methadone, Qual Neg Acetaminophen Urine Barbiturates Neg Ur Phencyclidine (PCP) Neg U Amphetamin/Meth Scrn Neg MDMA (Ecstasy) Screen Neg U Benzodiazepines Scrn Neg Ur Cocaine Metabolite Neg U Marijuana (THC) Screen Pos H Ethyl Alcohol mg/dL 11/27/19 11/27/19 11/27/19 01:10 01:10 01:10 WBC RBC Hgb Hct MCV MCH MCHC RDW Std Deviation RDW Coeff of Kyra Plt Count MPV Immature Gran % (Auto) Neut % (Auto) Lymph % (Auto) [place] % (Auto) Eos % (Auto) Baso % (Auto) Immature Gran # (Auto) Neut # (Auto) Lymph # (Auto) [place] # (Auto) Eos # (Auto) Baso # (Auto) Sodium 141 Potassium 3.9 Chloride 111 H Carbon Dioxide 22 Anion Gap 8.0 BUN 18 Creatinine 0.95 Est Cr Clr Drug Dosing 162.4 Est GFR ( Amer) 130.2 Est GFR (Non-Af Amer) 112.4 BUN/Creatinine Ratio 19.0 Glucose 97 Calcium 8.9 Total Bilirubin 0.3 AST 86 H ALT 164 H Alkaline Phosphatase 111 Total Protein 7.5 Albumin 3.9 Globulin 3.6 Albumin/Globulin Ratio 1.1 TSH 2.260 Specimen Hemolysis Urine Color Urine Appearance Urine pH Ur Specific [place] Urine Protein Urine Glucose (UA) Urine Ketones Urine Blood Urine Nitrite Urine Bilirubin Urine Urobilinogen Ur Leukocyte Esterase Salicylates 1.8 L Urine Opiates Screen Ur Methadone, Qual Acetaminophen < 2 L Urine Barbiturates Ur Phencyclidine (PCP) U Amphetamin/Meth Scrn MDMA (Ecstasy) Screen U Benzodiazepines Scrn Ur Cocaine Metabolite U Marijuana (THC) Screen Ethyl Alcohol mg/dL 36.0 H Hospital Course (1) Mood disorder: 11/26 -differential includes depression, bipolar disorder, substance- induced mood disorder, personality disorder, and malingering. -Although patient indicates he was doing well on haloperidol and citalopram, he is refusing to resume these medications. -Request release for most recent episode of treatment (being him to the hospital couple of months ago), which he is refusing to sign. -Reviewed recommendations for collateral information from his brother (or any other support he can identify), but participation in discharge planning, which he is also refusing. -We will continue to encourage patient to come out of his room, attend groups and therapy, and participate in treatment, but if he refuses, we will need to consider administrative discharge. 11/27 - Patient's presentation is most likely consistent with substance-induced mood disorder; although we will continue attempts to gather collateral information to further shape our differential - Pt is much more cooperative this morning, appearing genuinely remorseful for his poor attitude yesterday and has been engaged with peers - Pt admits that use of alcohol and other substances contributes to depressive symptoms and SI - he admits to doing well during a 13-month period of sobriety while off psychotropic medications - Pt is declining at this time to resume scheduled psychotropic medications - will continue to monitor mood over the course of his admission - Pt denies SI and other mood-related concerns this morning - Pt did sign behavioral plan regarding conduct here on the unit 11/28 -It is not entirely clear if the patient has any actual mood symptoms. We were struck by the fact that the patient quickly reported resolution of any mood symptoms, including resolution of the suicidal ideations that he had reported at admission. -There was a general sense among the treating staff that the patient, based upon a number of the patient's statements, that he had hoped to use the hospital as a "bridge" through which to "get clean" (from drugs) for purposes of transferring to residential chemical dependency treatment. -The patient's veracity was highly questionable, and he frequently directly contradicted assertions not long after he had made them. For example, he cla imed that he had been "living with his brother," and not after he made that claim, he reported that he is estranged from his brother and has not seen him "in a long time." -The patient had asserted that he was having thoughts of suicide at the time of admission, and, as noted below, he also claimed that he was experiencing hallucinations. Our impression is that the patient was malingering on both accounts. He quickly began to tell us that he was not suicidal and emphasized his desire to be discharged to residential treatment. -A central issue in this case is the fact that this patient has pretty obvious character pathology and is surprisingly immature. He uses defense mechanisms such as denial, projection, and externalization very liberally. He also was repeatedly rude and at times insulting towards other patients and with staff. -Patient also sometimes used what always proved to be empty threats in an effort to manipulate. For example, after telling us that he was not depressed, not suicidal, not hearing voices, and "ready to leave," when he was told that he would be leaving and would not necessarily be admitted later today to a residential chemical dependency rehabilitation program, he said "when you better get security up here!" When confronted about this threat, the patient said, "oh, I was just blowing off steam." -Psychiatric hospitalization is unlikely to have any favorable effect on this patient's condition and behavior. In fact, because of his tendency to externalize all responsibility to various authority figures, including treatment providers, unnecessary psychiatric hospitalization may actually be harmful and that it can reinforce his dysfunctional coping mechanisms. (2) Hallucinations: 11/26 -unclear if true hallucinations, substance-induced, or malingering. -Patient refusing scheduled medication, but have ordered haloperidol 5 mg every 4 hours PRN psychosis. -Encourage patient to be actively participating in treatment and engaging in reality testing and healthy coping skills. 11/27 - Pt does verify that hallucinations are not present during periods of sobriety - as evidence by a 13 month period of abstinence from substance in which patient denies encountering any psychotic symptoms - With this information, hallucinations are most likely substance-induced and therefore not likely related to an underlying psychotic/thought disorder - Pt is denying auditory/command hallucinations this morning; has not required prn haloperidol 11/28 -Patient has told us that he only experiences perceptual disturbances (visual and auditory hallucinations) when he is using drugs of abuse that are known to induce perceptual disturbances. He acknowledges that he does not have perceptual disturbances at any other time. There is no need for an antipsychotic medication, and we believe that the patient's report that he was hallucinating at admission was a function of malingering because the patient was seeking to use the hospital as a bridge between the community and a residential chemical dependency treatment program. (3) Cannabis abuse: 11/26 -hallucinogen use likely contributing to presenting symptoms. Patient unwilling to discuss substance abuse treatment recommendations. 11/27 - Pt continues to verbalize a willingness for rehab placement, something he confirms he had initiated on an outpatient basis prior to admission - Pt admits to depressive symtpoms and occasional suicidality within the context of alcohol and "spice" use - denies SI presently stating "it was all because I got drunk and did spice, I'm fine now." 11/28 -Patient is continuing to report that he does not have any suicidal thoughts. He does have some insight into his problems and is able to state "the most important thing is for me to not use drugs." (4) Alcohol abuse: 11/26 -patient reports drinking alcohol most days, large amounts, refuses to quantify further. Reports history of alcohol withdrawal and rehab for alcoholism. Start AWSS protocol, will utilize chlordiazepoxide if needed for symptoms, and will avoid lorazepam as he has not listed as an allergy with "difficulty breathing." However would also like to limit hepatically metabolized medications given his hepatitis C and elevated LFTs, but will need to balance the need to treat alcohol withdrawal with attempts to minimize the impact to his other health conditions. Could also consider clonidine for blood pressure control. Patient is refusing substance abuse treatment, but will initiate recovery protocol. Return to rehab or IOP is warranted, but patient unwilling to discuss. 11/27 - Pt admits to having a problem with alcohol and other substance use - He indicates a desire for referral to inpatient D&A rehab, with consideration at this time to utilize a long-term program to maintain sobriety after discharge - Pt did sign and [facility] for [facility], who confirmed that the patient had already completed their intake process prior to psychiatric admission - and they were attempting to coordinate his admission to their facility - Will continue to offer group programming and therapeutic interventions while monitoring for safety concerns - will re-refer to inpatient rehab at patient's request - Pt has not been scoring for prn medications with AWSS monitoring -Brief intervention with use of motivational interviewing was offered and accepted. Intervention was greater than 5 min in length. -Brief interventions include: 1. Assess Readiness to Quit, 2. Advise: Help Patient to Reduce or Abstain from Alcohol, 3. Agree: Set Specific, Feasible Goals, 4. Assist: Anticipate barriers, Problem-Solving Solutions. Social work to 5. Arrange: Referrals to appropriate treatment. -Summary of intervention: The patient is in contemplation stage with regards to transtheoretical model of change. The patient is advised to decrease alcohol consumption due to depressant effects and risk of interactions with prescription medications. The patient was advised of recommendations for abstinence from alcohol and other abusable substances and to attend substance abuse treatment at discharge, and will be provided with recovery materials to continue to education self on how to cope with their condition without drinking. 11/28 -Patient was reminded to avoid use of any mood altering chemical substances. He voices recognition that many of his presenting problems are directly related to his chronic use of multiple drugs of abuse, and he voices an intent to achieve and maintain lasting abstinence. -Unfortunately, the patient's prognosis regarding chemical substance abuse, independent of treatment, remains poor. He does voice insight into his need to achieve and maintain sobriety. However, the patient's defense mechanisms and coping strategies are quite immature, and he uses externalization and prevarication very frequently. (5) Heroin abuse: 11/26 -patient reports being clean for 3 years from heroin. Treatment recommendations as above. 11/27 - Verbalizing desire for inpatient D&A rehab as above 11/28 -The chemical dependency rehabilitation program to which the patient had sought admission has informed us that they do not currently have a bed, and do not plan to have a bed for the next 7 days. However, they also note that it is entirely possible that they will have an unexpected discharge, and they are recommending that the patient continue to contact them frequently (twice a day) from the community in order to ascertain whether a bed has become available. They are also offering transportation. -The patient was informed of this circumstance, and he initially said "This is [the hospital's] fault! You fucked this up." However, when approached about it later, patient acknowledges that he had made the mistake of coming to the emergency room and seeking temporary admission, rather than wait for the bed open in the community in the rehabilitation program. (6) IVDU (intravenous drug user): (7) Hepatitis C: Patient denies having a PCP. Recommend referral for initiation of outpatient care, which he is refusing. (8) Antisocial behavior: Demonstrates antisocial personality traits including repeatedly performing acts that are grounds for arrest, deceitfulness, impulsivity, and irritability. 11/27 - While patient's history remains consistent for antisocial personality traits, he does demonstrate sincere remorse for his poor attitude yesterday and is seemingly genuinely interested in cooperating with treatment in hopes for rehab placement. - No agitated behavior or threatening language toward staff; appropriate and cheerful interactions with peers - Pt did comply with discussing and agreeing to a behavioral plan regarding patient rights and responsibilities during psychiatric treatment 11/28 -Today, the patient referred to a staff member as a "bitch" in front of his peers. He also comes across as manipulative, fairly devoid of remorse and empathy, and as quite willing to exploit others. At the same time, he tends to lack the charm and polished of a successful sociopath, and we lack sufficient history to say that the patient meets full criteria for antisocial personality disorder. It does seem apparent that the patient does have a number of antisocial traits that significantly impact negatively upon his functioning in a number of spheres. Mental Health & Subst Abuse Tx Therapist Name of Therapist: Denies/None Top Dyeing Machine Loader Name of Top Dyeing Machine Loader: [facility]SU call if interested Phone Number for Top Dyeing Machine Loader: [phone] Post Discharge Appointments Primary Care Physician Name Of Family Doctor: Denies/None Smoking Cessation Counseling Tobacco Cessation Medication Prescribed at Discharge: Offered & Pt Refused (Patient reports that he was not experiencing any nicotine withdrawal symptoms and asserts, recently, that he might reintroduce nicotine dependence where he to begin using nicotine replacement products.) Contact Information Discharge Discharge Address: homeless Discharge Plan Discharge Items Patient Disposition: Home - Self-Care Reason For Visit: DEPRESSION,NOS Discharge Diagnosis: Substance Dependence Activity: Resume your previous activity Non-emergency contact: Primary Care Provider Call non-emergency contact if: you have any medication questions and your symptoms worsen Follow-up/Referrals: PCP,NO [Primary Care Provider] - Diet: Regular Addtl Attending Provider Instructions: SPECIAL CARE INSTRUCTIONS: 1. Follow through with your scheduled aftercare appointments. If unable to keep an appointment, please call to reschedule. 2. Take your medication only as prescribed. Medication should not be changed or stopped without the approval of your doctor. In the event of worsening symptoms or concerns about side effects, contact your doctor immediately. 3. Utilize new healthy coping skills, anger management skills, and stress management skills learned during your hospitalization. Journal feelings and process them with a support person. Identify stressors or situations that may result in relapse, deterioration or inappropriate behaviors and develop a plan to deal with those issues. 4. If your coping skills are ineffective and you are in crisis, contact your outpatient providers for direction. If unable to reach your providers, please call the CAN HELP LINE AT or go to the closest Emergency Room. 5. Avoid alcohol and un-prescribed drugs. 6. You have been provided with the Mental Health Advance Directives Pamphlet for your review. AFTERCARE APPOINTMENTS: * Please call your insurance company prior to your scheduled appointment to confirm your aftercare providers are covered. Take your insurance information to your appointments. WHO TO CALL AND WHEN: Medical Emergencies: For questions or emergencies related to your hospital stay, please contact the Inpatient Behavioral Health Unit at [phone]. A livery car driver is on-call 03/04 for the Behavioral Health Unit for emergencies At any time you feel your situation is an emergency, you may also call 911 immediately. Your Doctors Instructions noted above were prepared by provider Lucas Gaona MD. Pending Studies at Discharge: No Stand-Alone Forms: My [facility], Smoking Cessation, Suicide Prevention Resources Medications and DC Order Discharge Orders: Discharge Order (Routine); Ordered 11/29/19 Ordered By: Lucas Gaona Admission Data Admit Date/Time: 11/27/19 04:15 Attending Provider: Radha Chaney Admit Provider: Radha Chaney Primary Care Provider: PCP,NO Other Interventions: Discharge Summary Assessment (RN) Last Done: 11/29/19 09:45 PSY Interdisciplinary Discharge Planning Last Done: 11/29/19 09:44 DC Date/Time DO NOT enter until pt leaves facility: 11/29/19 11:15 [place] [address] D/C day mgmt > 30 min Patient Type Established History Expanded Problem Focused Exam Expanded Problem Focused Medical Decision Making Moderate Complexity Diagnoses Mood disorder F39 Hallucinations R44.3 Cannabis abuse F12.10 Alcohol abuse F10.10 Heroin abuse F11.10 IVDU (intravenous drug user) F19.90 Hepatitis C B19.20 Antisocial behavior Time Spent (min) 70
--- NOTE | 2019-11-29 14:58 | Communication Note ---
Date of Service: November 29, 2019 The patient has a known history of substance abuse, including abuse of mood- altering chemical substances, and sought admission pending an anticipated admi ssion to a residential chemical dependency treatment program He stabilized quickly on the Behavioral Health Unit, and without medications he improved to the degree that at discharge his mood was described by the patient as "Good," and his affect was euthymic. There are no psychotic features. He had no suicidal or homicidal thoughts and was future oriented, particularly as his future pertains to recovery and remaining "clean." He is not considered to be an imminent risk of causing serious harm to self or others. On 11/29/19, he was discharged from [facility] on no psychiatric medications. His discharge diagnosis was drug induced mood disorder, resolved. We do not believe that he will require any ongoing psychiatric treatment. Our recommendation is for residential chemical dependency treatment, to be followed by outpatient chemical drug abuse treatment.
[2019-11-29 19:24] LABS: Marijuana Quant, GCMS Urine 347 ng/mL (<5)
== END 2019-11-29 11:15 | disposition home or self-care (01) | DRG 885 ==
LOC: ED 23:54 → 3S 11-27 04:15